=== PATIENT | female | born 1980 | race African-American/Black ===

== ENCOUNTER 2016-07-05 10:06 | Emergency (ER) | payer OTHER ==
[~2016-07-05] VITALS: Ht 160 cm; Wt 96.4 kg
[~2016-07-05 10:06] MED LIST: CHANTIX1 MG PO; COZAAR100 MG PO; DEPO-PROVER150 MG/ML IM; DILAUDID2 MG PO; ELAVIL50 MG PO; GLUCOPHAGE1000 MG PO; INDERAL20 MG PO; KLONOPIN2 MG PO; LIORESAL10 MG PO; LYRICA100 MG PO; MORPHINE SULFAT15 M1 PO; OXYCODONE HCL10 MG PO; PERCOCET 5/31 TABLET PO; PRAVACHOL80 MG PO; SEROQUEL300 MG PO; TOPAMAX100 MG PO
[2016-07-05 10:19] VITALS: BP 143/119
[2016-07-05 10:36] LABS: HEMATOCRIT 41.1 % (36.0-46.0); MCH 31.8 PG (29.0-34.0); MCHC 32.6 G/DL (30.0-36.0); MCV 97.4 FL (83-99); MEAN PLAT.VOLUME 10.7 uM^3 (9.5-12.4); PLATELET COUNT 366 K/uL (156-360); RBC DIS.WIDTH-CV 13.6 % (11.8-14.6); RBC DIS.WIDTH-SD 48.5 % (39-53); RED BLOOD COUNT 4.22 M/uL (3.80-5.20); WHITE BLOOD COUNT 24.1 K/uL (4.1-10.2)
[2016-07-05 10:49] LABS: CHLORIDE 105 mEq/L (99-109); POTASSIUM 3.4 mEq/L (3.7-5.4); SODIUM 138 mEq/L (136-147)
[2016-07-05 10:51] LABS: GLUCOSE 167 mg/dL (70-99)
[2016-07-05 10:52] LABS: ANION GAP 11 MEQ/L (2-14)
[2016-07-05 10:52] LABS: ADD MIUA? YES; BILIRUBIN NEGATIVE; BLOOD NEGATIVE; COLOR YELLOW ((YELLOW)); GLUCOSE (STRIP) NEGATIVE; KETONES NEGATIVE; LEUKOCYTES NEGATIVE; NITRITE NEGATIVE; PROTEIN (STRIP) 30; SPECIFIC GRAVITY 1.016 (1.000-1.030)
[2016-07-05 10:53] LABS: TOTAL BILIRUBIN 0.5 mg/dL (0.0-1.0)
[2016-07-05 10:54] LABS: ALKALINE PHOSPHATASE 111 IU/L (3-129)
[2016-07-05 10:55] LABS: GFR ESTIMATE (CALCULATED) > 59 mL/min/
[2016-07-05 10:56] LABS: UREA NITROGEN (BUN) 13 mg/dL (9-23)
[2016-07-05 10:57] LABS: BACTERIA RARE /HPF; EPITHELIAL CELLS 1+ /HPF; MUCUS TRACE /LPF; RED BLOOD CELLS 0-5 /HPF (0-5); UCUL ADDED? NO; WHITE BLOOD CELLS 0-5 /HPF (0-5)
[2016-07-05 11:05] LABS: QUANTITATIVE HCG < 4.0 MIU/ML
[2016-07-05] MEDS ORDERED: RENVELA800 MG PO (11:27)
[2016-07-05] MEDS ORDERED: ZOFRAN ODT8 MG PO (13:54)
[2016-07-05] MEDS ORDERED: MOTRIN600 MG PO (13:54)
== END 2016-07-05 14:15 | disposition home or self-care (01) ==
LOC: EME 10:06
DX: R10.9 Unspecified abdominal pain (principal)
CPT/HCPCS: 74176; 80053; 81003; 84702; 85027; 99281; 99284

== ENCOUNTER 2016-07-21 18:13 | Inpatient (IN) | payer OTHER ==
[~2016-07-21] VITALS: Ht 167.6 cm; Wt 99.6 kg
[~2016-07-21 18:13] MED LIST changes: +MOTRIN600 MG PO; +RENVELA800 MG PO; +ZOFRAN ODT8 MG PO
[2016-07-21 18:54] LABS: HEMATOCRIT 32.9 % (36.0-46.0); MCH 31.5 PG (29.0-34.0); MCHC 32.2 G/DL (30.0-36.0); MCV 97.9 FL (83-99); RBC DIS.WIDTH-CV 13.3 % (11.8-14.6); RBC DIS.WIDTH-SD 47.8 % (39-53); WHITE BLOOD COUNT 20.3 K/uL (4.1-10.2)
[2016-07-21 18:58] LABS: RED BLOOD COUNT 3.36 M/uL (3.80-5.20)
[2016-07-21 19:01] LABS: CHLORIDE 111 mEq/L (99-109); POTASSIUM 3.7 mEq/L (3.7-5.4); SODIUM 141 mEq/L (136-147)
[2016-07-21 19:03] LABS: GLUCOSE 149 mg/dL (70-99)
[2016-07-21 19:04] LABS: ANION GAP 11 MEQ/L (2-14)
[2016-07-21 19:05] LABS: TOTAL BILIRUBIN 0.3 mg/dL (0.0-1.0)
[2016-07-21 19:06] LABS: SERUM ETHYL ALCOHOL < 10 mg/dL
[2016-07-21 19:07] LABS: ALKALINE PHOSPHATASE 96 IU/L (3-129); GFR ESTIMATE (CALCULATED) > 59 mL/min/
[2016-07-21 19:09] LABS: BASE EXCESS -5.3 mEq/L (-3 to +3); BICARBONATE 18.6 mEq/L (22-26); CARBOXY HGB 6.2 % (0-5); METHEMOGLOBIN 1.2 % (0-1.5); PCO2 30 mm Hg (35-45); PO2 81 mm Hg (80-100)
[2016-07-21 19:09] LABS: UREA NITROGEN (BUN) 9 mg/dL (9-23)
[2016-07-21 19:10] LABS: SALICYLATE < 5.0 MG/DL (15-30)
[2016-07-21 19:10] LABS: COMMENTS - BLOOD GASES A+C+; DEVICE RA; FI02 21 %; O2 FLOW 0 L/MIN; SITE RR; TOTAL RESP RATE 22 resp/min
[2016-07-21 19:16] LABS: QUANTITATIVE HCG < 4.0 MIU/ML
[2016-07-21 19:30] LABS: ADD MIUA? YES; BILIRUBIN NEGATIVE; BLOOD SMALL; COLOR COLORLESS ((YELLOW)); GLUCOSE (STRIP) NEGATIVE; KETONES NEGATIVE; LEUKOCYTES NEGATIVE; NITRITE NEGATIVE; PROTEIN (STRIP) NEGATIVE; SPECIFIC GRAVITY 1.001 (1.000-1.030); UROBILINOGEN 0.2 MG/DL (0.2-1.0)
[2016-07-21 19:35] LABS: BACTERIA NONE SEEN /HPF; EPITHELIAL CELLS NONE SEEN /HPF; MUCUS NONE SEEN /LPF; RED BLOOD CELLS 0-5 /HPF (0-5); UCUL ADDED? NO; WHITE BLOOD CELLS 0-5 /HPF (0-5)
[2016-07-21 19:36] LABS: PLAT.SUFFICIENCY ADEQUATE; PLATELET CLUMPS PRESENT - PLATELET COUNT APPEARS ADQ.; PLATELET COUNT UNABLE TO REPORT K/uL (156-360)
[2016-07-21 19:50] LABS: ADD MEDTOX COMMENT Y; AMPHETAMINE NEGATIVE (500 ng/mL); BARBITURATES NEGATIVE (200 ng/mL); BENZODIAZEPINES NEGATIVE (150 ng/mL); COCAINE NEGATIVE (150 ng/mL); INTERNAL CONTROLS VALID? YES; METHADONE NEGATIVE (200 ng/mL); METHAMPHETAMINE NEGATIVE (500 ng/mL); OPIATES (MORPHINE) PRESUMPTIVE POSITIVE (100 ng/mL); OXYCODONE PRESUMPTIVE POSITIVE (100 ng/mL); PHENCYCLIDINE NEGATIVE (25 ng/mL); PROPOXYPHENE NEGATIVE (300 ng/mL); THC CANNABINOIDS NEGATIVE (50 ng/mL); TRICYCLIC ANTIDEPRESSANTS PRESUMPTIVE POSITIVE (300 ng/mL)
[2016-07-21 22:40] VITALS: BP 127/83
[2016-07-21 22:44] VITALS: BP 127/83
[2016-07-21 23:00] VITALS: BP 115/72
[2016-07-21 23:32] LABS: APPEARANCE CLEAR/COLORLESS; RED CELL AREA COUNTED 18; RED CELL COUNT 2 /MM^3 (0-1); RED CELL DILUTION 1; WBC AREA COUNTED 18; WBC DILUTION 1; WHITE CELL COUNT 1 /MM^3 (0-5); WHITE CELL RAW COUNT 1
[2016-07-21 23:44] LABS: BASE EXCESS -2.2 mEq/L (-3 to +3); BICARBONATE 22.4 mEq/L (22-26); CARBOXY HGB 2.7 % (0-5); COMMENTS - BLOOD GASES A+C+; DEVICE 840; FI02 100 %; MECHANICAL RATE 16 resp/min; MODE AC; PCO2 37 mm Hg (35-45); PO2 374 mm Hg (80-100); SITE RR; TIDAL VOLUME 450 ML; TOTAL RESP RATE 19 resp/min; pH 7.39 (7.35-7.45)
[2016-07-21 23:45] LABS: CSF EOSINOPHILS ND % (0-25); MONONUCLEAR WBC'S ND % (50-90); POLYNUCLEAR WBC'S ND % (0-3)
[2016-07-21 23:45] LABS: PEEP 5 CM/H20
[2016-07-21 23:54] LABS: METH RESISTANT S AUREUS PCR POSITIVE (NEGATIVE)
[2016-07-21 23:58] LABS: PROBE CHECK PASS
[2016-07-22] VITALS (12 sets, daily range): BP systolic 85–121; BP diastolic 49–80
[2016-07-22 00:23] LABS: TRIGLYCERIDES 89 MG/DL (Normal: <150)
[2016-07-22 04:40] LABS: EOSINOPHIL (%) 3.2 % (0-5); EOSINOPHIL COUNT 0.5 K/uL (0-0.3); HEMATOCRIT 31.4 % (36.0-46.0); IMMATURE GRANULOCYTE (%) 0.4 % (0.0-0.7); IMMATURE GRANULOCYTE COUNT 0.1 K/uL; INSTRUMENT ABS NEUTROPHIL CT 9.9 K/uL; LYMPHOCYTE COUNT 4.3 K/uL (1.0-2.8); MCH 31.7 PG (29.0-34.0); MCHC 32.5 G/DL (30.0-36.0); MCV 97.5 FL (83-99); MEAN PLAT.VOLUME 11.2 uM^3 (9.5-12.4); MONOCYTE (%) 4.4 % (3-12); MONOCYTE COUNT 0.7 K/uL (0-0.8); NEUTROPHIL (%) 63.7 % (45-76); NEUTROPHIL COUNT 9.9 K/uL (1.8-6.4); RBC DIS.WIDTH-CV 13.4 % (11.8-14.6); RBC DIS.WIDTH-SD 48.3 % (39-53); RED BLOOD COUNT 3.22 M/uL (3.80-5.20); WHITE BLOOD COUNT 15.5 K/uL (4.1-10.2)
[2016-07-22 04:44] LABS: CHLORIDE 114 mEq/L (99-109); POTASSIUM 3.7 mEq/L (3.7-5.4); SODIUM 145 mEq/L (136-147)
[2016-07-22 04:46] LABS: GLUCOSE 117 mg/dL (70-99)
[2016-07-22 04:48] LABS: ANION GAP 12 MEQ/L (2-14)
[2016-07-22 04:50] LABS: ALKALINE PHOSPHATASE 92 IU/L (3-129); GFR ESTIMATE (CALCULATED) > 59 mL/min/
[2016-07-22 04:51] LABS: UREA NITROGEN (BUN) 9 mg/dL (9-23)
[2016-07-22 04:56] LABS: TOTAL BILIRUBIN 0.5 mg/dL (0.0-1.0)
[2016-07-22 06:29] LABS: PLATELET COUNT 191 K/uL (156-360)
[2016-07-22] MEDS ORDERED: INDERAL40 MG PO (12:40)
[2016-07-22] MEDS ORDERED: KADIAN50 MG PO (12:41)
[2016-07-22] MEDS ORDERED: LYRICA150 MG PO (12:41)
[2016-07-22] MEDS ORDERED: OXYCONTIN40 MG PO (12:41)
[2016-07-22] MEDS ORDERED: ELAVIL25 MG PO (12:42)
[2016-07-22] MEDS ORDERED: TOPAMAX25 MG PO (12:42)
[2016-07-22] MEDS ORDERED: LIORESAL10 MG PO (12:43)
[2016-07-22] MEDS ORDERED: KLONOPIN2 MG PO (12:43)
[2016-07-22] MEDS ORDERED: SEROQUEL400 MG PO (12:43)
[2016-07-22] MEDS ORDERED: ARYMO ER15 MG PO (15:34)
[2016-07-22] MEDS ORDERED: INDERAL20 MG PO (15:34)
[2016-07-22] MEDS ORDERED: OXYCODONE HCL10 MG PO (15:35)
[2016-07-22] MEDS ORDERED: ZOFRAN ODT8 MG PO (15:37)
[2016-07-23] VITALS: BP 105/65
[2016-07-23 01:08] VITALS: BP 111/68
[2016-07-23 02:43] VITALS: BP 109/60
[2016-07-23 06:34] LABS: MCH 31.7 PG (29.0-34.0); MCHC 32.3 G/DL (30.0-36.0); MEAN PLAT.VOLUME 11.1 uM^3 (9.5-12.4); PLATELET COUNT 216 K/uL (156-360); RBC DIS.WIDTH-CV 13.6 % (11.8-14.6); RBC DIS.WIDTH-SD 49.4 % (39-53); RED BLOOD COUNT 3.06 M/uL (3.80-5.20); WHITE BLOOD COUNT 10.9 K/uL (4.1-10.2)
[2016-07-23 06:55] LABS: ANION GAP 9 MEQ/L (2-14); CHLORIDE 115 MEQ/L (99-109); GFR ESTIMATE (CALCULATED) > 59 mL/min/; GLUCOSE 120 mg/dL (70-99); POTASSIUM 3.6 MEQ/L (3.7-5.4); SAMPLE HEMOLYSIS CHECK 0; SAMPLE ICTERIC CHECK 0; SAMPLE LIPEMIA CHECK 0; SODIUM 144 MEQ/L (136-147); UREA NITROGEN (BUN) 12 mg/dL (9-23)
[2016-07-23 07:22] VITALS: BP 106/60
[2016-07-23] MEDS ORDERED: TRAZODONE HCL50 MG PO (12:37)
== END 2016-07-23 13:33 | disposition home or self-care (01) | DRG 871 ==
LOC: EME 18:13 → 5EAST 21:15 → 4WEST 21:15 → EDOF 21:15 → 4WEST 22:27 → 5EAST 07-23 00:52
PROVIDERS: Emergency Medicine; Internal Medicine Pulmonary Disease
PROC: 009U3ZX Drainage of Spinal Canal, Percutaneous Approach, Diagnostic (ICD-10-PCS; principal; 2016-07-21)
PROC: B01BZZZ Fluoroscopy of Spinal Cord (ICD-10-PCS; principal; 2016-07-21)
PROC: 5A1935Z Respiratory Ventilation, Less than 24 Consecutive Hours (ICD-10-PCS; principal; 2016-07-21)
PROC: 0BH17EZ Insertion of Endotracheal Airway into Trachea, Via Natural or Artificial Opening (ICD-10-PCS; principal; 2016-07-21)
DX: A41.9 Sepsis, unspecified organism (principal); J69.0 Pneumonitis due to inhalation of food and vomit; J96.00 Acute respiratory failure, unspecified whether with hypoxia or hypercapnia; G89.29 Other chronic pain; T40.601A Poisoning by unspecified narcotics, accidental (unintentional), initial encounter; F31.9 Bipolar disorder, unspecified; E66.01 Morbid (severe) obesity due to excess calories; Z68.35 Body mass index [BMI] 35.0-35.9, adult; M54.9 Dorsalgia, unspecified; I10 Essential (primary) hypertension; E78.5 Hyperlipidemia, unspecified; E11.65 Type 2 diabetes mellitus with hyperglycemia; F41.9 Anxiety disorder, unspecified; R65.20 Severe sepsis without septic shock
CPT/HCPCS: 31500; 36600; 62270; 70450; 71010; 77003; 80048; 80048 91; 80053; 81003; 82803; 82945; 83605; 83735; 84157; 84478; 84702; 84999; 85025; 85027; 87040; 87070; 87205; 87641; 89051; 93005; 94002; 94003; 99281; 99285; G0480; J0295; J0330; J0696; J1650; J1940; J2310; J2704; J3370; J7040; J7050; S0028

== ENCOUNTER 2016-09-16 08:45 | Emergency (ER) | payer OTHER ==
[~2016-09-16] VITALS: Ht 160 cm; Wt 96.5 kg
[~2016-09-16 08:45] MED LIST changes: +ARYMO ER15 MG PO; +ELAVIL25 MG PO; +INDERAL40 MG PO; +KADIAN50 MG PO; +LYRICA150 MG PO; +OXYCONTIN40 MG PO; +SEROQUEL400 MG PO; +TOPAMAX25 MG PO; +TRAZODONE HCL50 MG PO
[2016-09-16 09:23] LABS: BASOPHIL COUNT 0.1 K/uL (0-0.1); EOSINOPHIL (%) 3.9 % (0-5); EOSINOPHIL COUNT 0.7 K/uL (0-0.3); HEMATOCRIT 41.8 % (36.0-46.0); IMMATURE GRANULOCYTE (%) 0.4 % (0.0-0.7); IMMATURE GRANULOCYTE COUNT 0.1 K/uL; INSTRUMENT ABS NEUTROPHIL CT 13.4 K/uL; LYMPHOCYTE COUNT 3.3 K/uL (1.0-2.8); MCHC 33.5 G/DL (30.0-36.0); MCV 95.4 FL (83-99); MEAN PLAT.VOLUME 11.7 uM^3 (9.5-12.4); MONOCYTE (%) 2.9 % (3-12); MONOCYTE COUNT 0.5 K/uL (0-0.8); NEUTROPHIL (%) 74.5 % (45-76); NEUTROPHIL COUNT 13.4 K/uL (1.8-6.4); PLATELET COUNT 281 K/uL (156-360); RBC DIS.WIDTH-SD 45.9 % (39-53); RED BLOOD COUNT 4.38 M/uL (3.80-5.20)
[2016-09-16 09:32] LABS: CHLORIDE 99 mEq/L (99-109); POTASSIUM 3.5 mEq/L (3.7-5.4); SODIUM 134 mEq/L (136-147)
[2016-09-16 09:35] LABS: GLUCOSE 254 mg/dL (70-99)
[2016-09-16 09:36] LABS: ANION GAP 11 MEQ/L (2-14)
[2016-09-16 09:37] LABS: TOTAL BILIRUBIN 0.5 mg/dL (0.0-1.0)
[2016-09-16 09:38] LABS: ALKALINE PHOSPHATASE 126 IU/L (3-129); GFR ESTIMATE (CALCULATED) 55 mL/min/
[2016-09-16 09:39] LABS: UREA NITROGEN (BUN) 10 mg/dL (9-23)
[2016-09-16] MEDS ORDERED: ZOFRAN ODT4 MG PO (15:05)
[2016-09-16] MEDS ORDERED: BENTYL10 MG PO (15:05)
[2016-09-16] MEDS ORDERED: BENTYL20 MG PO (15:08)
[2016-09-16 15:25] VITALS: BP 141/93
== END 2016-09-16 18:56 | disposition home or self-care (01) ==
LOC: EME 08:45
PROVIDERS: Emergency Medicine
DX: R10.9 Unspecified abdominal pain (principal); R11.2 Nausea with vomiting, unspecified; E86.0 Dehydration; R00.0 Tachycardia, unspecified; F32.9 Major depressive disorder, single episode, unspecified; F41.9 Anxiety disorder, unspecified; K21.9 Gastro-esophageal reflux disease without esophagitis; F17.200 Nicotine dependence, unspecified, uncomplicated
CPT/HCPCS: 74177; 80053; 85025; 87493; 99281; 99285; J1885; J2405; J7030

== ENCOUNTER 2017-05-21 19:05 | Inpatient (IN) | payer OTHER ==
[~2017-05-21] VITALS: Ht 160 cm; Wt 104.2 kg
[~2017-05-21 19:05] MED LIST changes: +BENTYL10 MG PO; +BENTYL20 MG PO; +ZOFRAN ODT4 MG PO
[2017-05-21 19:57] LABS: HEMATOCRIT 44.7 % (36.0-46.0); HEMOGLOBIN 15.3 G/DL (11.9-15.5); MCH 32.6 PG (29.0-34.0); MCHC 34.2 G/DL (30.0-36.0); MCV 95.3 FL (83-99); PLATELET COUNT 211 K/uL (156-360); RBC DIS.WIDTH-CV 12.1 % (11.8-14.6); RBC DIS.WIDTH-SD 42.5 % (39-53); RED BLOOD COUNT 4.69 M/uL (3.80-5.20); WHITE BLOOD COUNT 14.4 K/uL (4.1-10.2)
[2017-05-21 20:06] LABS: CARBON DIOXIDE (BICARBONATE) 26.7 MEQ/L (20-31)
[2017-05-21 20:15] LABS: CHLORIDE 88 mEq/L (99-109); POTASSIUM 5.9 mEq/L (3.7-5.4); SODIUM 125 mEq/L (136-147)
[2017-05-21 20:21] LABS: CREATININE 1.6 mg/dL (0.6-1.3); GFR ESTIMATE (CALCULATED) 47 mL/min/
[2017-05-21 20:22] LABS: UREA NITROGEN (BUN) 13 mg/dL (9-23)
[2017-05-21 20:33] LABS: GLUCOSE 870 mg/dL (70-99)
[2017-05-21 21:16] LABS: LIPASE 58 U/L (1.0-51.0)
[2017-05-21] MEDS ORDERED: MIRENA1 EACH IY (23:13)
[2017-05-21] MEDS ORDERED: INDERAL20 MG PO (23:13)
[2017-05-21] MEDS ORDERED: TOPAMAX100 MG PO (23:13)
[2017-05-21] MEDS ORDERED: ELAVIL50 MG PO (23:14)
[2017-05-21] MEDS ORDERED: KLONOPIN1 MG PO (23:14)
[2017-05-21] MEDS ORDERED: TRAZODONE HCL50 MG PO (23:14)
[2017-05-21] MEDS ORDERED: EXCEDRIN MIGRA1 EAC3 PO (23:15)
[2017-05-22 00:29] LABS: CARBON DIOXIDE (BICARBONATE) 29.7 MEQ/L (20-31)
[2017-05-22 00:37] LABS: ALBUMIN 3.6 g/dL (3.2-4.8); CHLORIDE 93 mEq/L (99-109); SODIUM 130 mEq/L (136-147)
[2017-05-22 00:38] LABS: MAGNESIUM 1.8 mg/dL (1.3-2.7)
[2017-05-22 00:40] LABS: TOTAL PROTEIN 7.1 g/dL (6.4-8.3)
[2017-05-22 00:42] LABS: TOTAL BILIRUBIN 0.5 mg/dL (0.0-1.0)
[2017-05-22 00:43] LABS: ALKALINE PHOSPHATASE 148 IU/L (3-129)
[2017-05-22 00:44] LABS: CREATININE 1.2 mg/dL (0.6-1.3); GFR ESTIMATE (CALCULATED) > 59 mL/min/
[2017-05-22 00:45] LABS: AST (GOT) 14 IU/L (2-34); UREA NITROGEN (BUN) 11 mg/dL (9-23)
[2017-05-22 00:46] LABS: ALT (GPT) 23 IU/L (3-49)
[2017-05-22 00:55] LABS: GLUCOSE 566 mg/dL (70-99); POTASSIUM 4.3 mEq/L (3.7-5.4)
[2017-05-22 06:37] LABS: ALBUMIN 3.4 g/dL (3.2-4.8); CHLORIDE 100 mEq/L (99-109); POTASSIUM 4.3 mEq/L (3.7-5.4); SODIUM 132 mEq/L (136-147)
[2017-05-22 06:40] LABS: GLUCOSE 350 mg/dL (70-99); TOTAL PROTEIN 6.9 g/dL (6.4-8.3)
[2017-05-22 06:42] LABS: TOTAL BILIRUBIN 0.5 mg/dL (0.0-1.0)
[2017-05-22 06:43] LABS: ALKALINE PHOSPHATASE 136 IU/L (3-129); PHOSPHORUS 2.4 mg/dL (2.5-4.9)
[2017-05-22 06:44] LABS: GFR ESTIMATE (CALCULATED) > 59 mL/min/
[2017-05-22 06:45] LABS: AST (GOT) 20 IU/L (2-34); UREA NITROGEN (BUN) 8 mg/dL (9-23)
[2017-05-22 06:46] LABS: ALT (GPT) 24 IU/L (3-49)
[2017-05-22 09:29] LABS: HEMATOCRIT 38.7 % (36.0-46.0); HEMOGLOBIN 13.7 G/DL (11.9-15.5); MCH 33.2 PG (29.0-34.0); MCHC 35.4 G/DL (30.0-36.0); MCV 93.7 FL (83-99); PLATELET COUNT 185 K/uL (156-360); RBC DIS.WIDTH-CV 11.9 % (11.8-14.6); RBC DIS.WIDTH-SD 41.1 % (39-53); RED BLOOD COUNT 4.13 M/uL (3.80-5.20); WHITE BLOOD COUNT 11.3 K/uL (4.1-10.2)
[2017-05-22 09:44] LABS: ALBUMIN 3.2 g/dL (3.2-4.8); CHLORIDE 100 mEq/L (99-109); POTASSIUM 4.2 mEq/L (3.7-5.4); SODIUM 133 mEq/L (136-147)
[2017-05-22 09:46] LABS: GLUCOSE 390 mg/dL (70-99); TOTAL PROTEIN 6.7 g/dL (6.4-8.3)
[2017-05-22 09:48] LABS: TOTAL BILIRUBIN 0.5 mg/dL (0.0-1.0)
[2017-05-22 09:50] LABS: ALKALINE PHOSPHATASE 127 IU/L (3-129); GFR ESTIMATE (CALCULATED) > 59 mL/min/
[2017-05-22 09:51] LABS: UREA NITROGEN (BUN) 9 mg/dL (9-23)
[2017-05-22 09:52] LABS: AST (GOT) 31 IU/L (2-34)
[2017-05-22 09:53] LABS: ALT (GPT) 26 IU/L (3-49)
[2017-05-22 13:14] LABS: HEMOGLOBIN A1c (GLYCOHEMOGLOB) 13.9 % (Below 5.7)
[2017-05-22 15:30] VITALS: BP 119/78
[2017-05-22 19:03] VITALS: BP 122/69
[2017-05-22 23:48] VITALS: BP 149/84
[2017-05-23 03:54] VITALS: BP 128/80
[2017-05-23 08:18] VITALS: BP 134/77
[2017-05-23 11:48] LABS: GLUCOSE 434 mg/dL (70-99)
[2017-05-23 11:50] VITALS: BP 110/74
[2017-05-23 15:35] VITALS: BP 136/95
[2017-05-23 20:24] VITALS: BP 159/81
[2017-05-24 00:14] VITALS: BP 102/55
[2017-05-24 04:17] VITALS: BP 122/66
[2017-05-24 06:02] LABS: BASOPHIL (%) 0.5 % (0-1); BASOPHIL COUNT 0.1 K/uL (0-0.1); EOSINOPHIL (%) 3.9 % (0-5); EOSINOPHIL COUNT 0.4 K/uL (0-0.3); HEMATOCRIT 38.6 % (36.0-46.0); HEMOGLOBIN 12.9 G/DL (11.9-15.5); IMMATURE GRANULOCYTE (%) 0.4 % (0.0-0.7); LYMPHOCYTE COUNT 4.5 K/uL (1.0-2.8); MCH 32.3 PG (29.0-34.0); MCHC 33.4 G/DL (30.0-36.0); MCV 96.7 FL (83-99); MONOCYTE (%) 5.8 % (3-12); MONOCYTE COUNT 0.6 K/uL (0-0.8); NEUTROPHIL (%) 48.4 % (45-76); NEUTROPHIL COUNT 5.3 K/uL (1.8-6.4); PLATELET COUNT 161 K/uL (156-360); RBC DIS.WIDTH-CV 12.2 % (11.8-14.6); RED BLOOD COUNT 3.99 M/uL (3.80-5.20)
[2017-05-24 06:31] LABS: CHLORIDE 104 MEQ/L (99-109); CREATININE 0.9 MG/DL (0.6-1.3); GFR ESTIMATE (CALCULATED) > 59 mL/min/; GLUCOSE 242 mg/dL (70-99); POTASSIUM 4.1 MEQ/L (3.7-5.4); SODIUM 136 MEQ/L (136-147); UREA NITROGEN (BUN) 10 mg/dL (9-23)
[2017-05-24 07:50] VITALS: BP 112/60
[2017-05-24 12:31] VITALS: BP 131/75
[2017-05-24] MEDS ORDERED: NOVOLOG 10100 UNITS/ SC (13:46)
[2017-05-24] MEDS ORDERED: AMOX TR-K CLV1 EAC4 PO (13:46)
[2017-05-24] MEDS ORDERED: TRAZODONE HCL50 MG PO (13:46)
[2017-05-24] MEDS ORDERED: ELAVIL50 MG PO (13:46)
[2017-05-24] MEDS ORDERED: LEVEMIR100 UNIT/2 SC (13:46)
[2017-05-24] MEDS ORDERED: KLONOPIN1 MG PO (13:46)
[2017-05-24] MEDS ORDERED: TOPAMAX100 MG PO (13:46)
[2017-05-24] MEDS ORDERED: METFORMIN HCL500 MG PO (13:46)
[2017-05-24] MEDS ORDERED: INDERAL20 MG PO (13:46)
[2017-05-24] MEDS ORDERED: LIORESAL10 MG PO (13:46)
[2017-05-24] MEDS ORDERED: LYRICA150 MG PO (13:46)
[2017-05-24] MEDS ORDERED: EXCEDRIN MIGRA1 EAC3 PO (13:46)
[2017-05-24] MEDS ORDERED: SEROQUEL400 MG PO (13:46)
== END 2017-05-24 19:53 | disposition home or self-care (01) | DRG 392 ==
LOC: EME 19:05 → EDOF 23:28 → ENRESERV 23:33 → EDOF 05-22 14:42 → 2EASTP 05-22 15:17
PROVIDERS: Emergency Medicine; Hospitalist; Internal Medicine; Physician Assistant Medical
DX: A08.4 Viral intestinal infection, unspecified (principal); E11.65 Type 2 diabetes mellitus with hyperglycemia; N17.9 Acute kidney failure, unspecified; E87.2 Acidosis; E86.0 Dehydration; K04.7 Periapical abscess without sinus; I10 Essential (primary) hypertension; F31.9 Bipolar disorder, unspecified; F41.9 Anxiety disorder, unspecified; G43.909 Migraine, unspecified, not intractable, without status migrainosus; G89.29 Other chronic pain; F17.200 Nicotine dependence, unspecified, uncomplicated; E66.01 Morbid (severe) obesity due to excess calories; Z68.41 Body mass index [BMI] 40.0-44.9, adult; Z91.14 Patient's other noncompliance with medication regimen
CPT/HCPCS: 70486; 74176; 80047; 80048; 80048 91; 80053; 80306 90; 81003; 82010; 82803; 82948; 83036; 83605; 83690; 83735; 84100; 84999; 85025; 85027; 87040; 87493; 93005; 99281; 99285; J0295; J1650; J1815; J2543; J3370; J3480; J7030; J7050; J7120

== ENCOUNTER 2017-09-10 12:58 | Emergency (ER) | payer OTHER ==
[~2017-09-10] VITALS: Ht 160 cm; Wt 103.5 kg
[~2017-09-10 12:58] MED LIST changes: +AMOX TR-K CLV1 EAC4 PO; +EXCEDRIN MIGRA1 EAC3 PO; +KLONOPIN1 MG PO; +LEVEMIR100 UNIT/2 SC; +METFORMIN HCL500 MG PO; +MIRENA1 EACH IY; +NOVOLOG 10100 UNITS/ SC
[2017-09-10 13:33] LABS: HEMATOCRIT 41.5 % (36.0-46.0); MCH 33.2 PG (29.0-34.0); MCHC 33.7 G/DL (30.0-36.0); MCV 98.3 FL (83-99); PLATELET COUNT 293 K/uL (156-360); RBC DIS.WIDTH-CV 14.5 % (11.8-14.6); RBC DIS.WIDTH-SD 52.2 % (39-53); RED BLOOD COUNT 4.22 M/uL (3.80-5.20); WHITE BLOOD COUNT 15.5 K/uL (4.1-10.2)
[2017-09-10 13:39] LABS: APPEARANCE SL.HAZY ((CLEAR)); BILIRUBIN NEGATIVE; BLOOD NEGATIVE; COLOR YELLOW ((YELLOW)); GLUCOSE (STRIP) NEGATIVE; KETONES NEGATIVE; LEUKOCYTES NEGATIVE; NITRITE NEGATIVE; PROTEIN (STRIP) 30; SPECIFIC GRAVITY 1.013 (1.000-1.030); UROBILINOGEN 0.2 MG/DL (0.2-1.0)
[2017-09-10 13:41] LABS: ALBUMIN 3.6 g/dL (3.2-4.8); CHLORIDE 104 mEq/L (99-109); POTASSIUM 4.8 mEq/L (3.7-5.4); SODIUM 134 mEq/L (136-147)
[2017-09-10 13:41] LABS: BACTERIA RARE /HPF; EPITHELIAL CELLS 1+ /HPF; MUCUS TRACE /LPF; RED BLOOD CELLS 0-5 /HPF (0-5); UCUL ADDED? NO; WHITE BLOOD CELLS 0-5 /HPF (0-5)
[2017-09-10 13:44] LABS: GLUCOSE 213 mg/dL (70-99); TOTAL PROTEIN 7.3 g/dL (6.4-8.3)
[2017-09-10 13:46] LABS: TOTAL BILIRUBIN 0.2 mg/dL (0.0-1.0)
[2017-09-10 13:47] LABS: ALKALINE PHOSPHATASE 118 IU/L (3-129); CREATININE 0.9 mg/dL (0.6-1.3); GFR ESTIMATE (CALCULATED) > 59 mL/min/
[2017-09-10 13:48] LABS: UREA NITROGEN (BUN) 11 mg/dL (9-23)
[2017-09-10 13:49] LABS: AST (GOT) 12 IU/L (2-34)
[2017-09-10 13:50] LABS: ALT (GPT) 16 IU/L (3-49)
[2017-09-10 13:57] LABS: QUANTITATIVE HCG < 4.0 MIU/ML
[2017-09-10] MEDS ORDERED: MOTRIN600 MG PO (16:03)
[2017-09-10] MEDS ORDERED: FLAGYL500 MG PO (16:03)
[2017-09-10] MEDS ORDERED: DOXYCYCLINE HY100 MG PO (16:06)
[2017-09-10 16:19] LABS: SOURCE SWAB
[2017-09-10 16:52] VITALS: BP 128/80
== END 2017-09-10 17:00 | disposition home or self-care (01) ==
LOC: EME 12:58
PROVIDERS: Physician Assistant
DX: N73.9 Female pelvic inflammatory disease, unspecified (principal); M87.852 Other osteonecrosis, left femur; M87.851 Other osteonecrosis, right femur; K21.9 Gastro-esophageal reflux disease without esophagitis; F32.9 Major depressive disorder, single episode, unspecified; F17.200 Nicotine dependence, unspecified, uncomplicated; Z97.5 Presence of (intrauterine) contraceptive device; Z87.19 Personal history of other diseases of the digestive system; Z98.890 Other specified postprocedural states; Z90.49 Acquired absence of other specified parts of digestive tract
CPT/HCPCS: 74177; 80053; 81003; 84702; 85027; 87210; 87491; 87591; 99281; 99285; J0696; J1885; J2405; J3010; J7030

== ENCOUNTER 2017-09-11 19:59 | Emergency (ER) | payer OTHER ==
[~2017-09-11] VITALS: Ht 160 cm; Wt 102.1 kg
[~2017-09-11 19:59] MED LIST changes: +DOXYCYCLINE HY100 MG PO; +FLAGYL500 MG PO
[2017-09-11 22:09] LABS: HEMATOCRIT 40.7 % (36.0-46.0); MCH 33.4 PG (29.0-34.0); MCHC 34.4 G/DL (30.0-36.0); MCV 97.1 FL (83-99); PLATELET COUNT 309 K/uL (156-360); RBC DIS.WIDTH-CV 14.6 % (11.8-14.6); RBC DIS.WIDTH-SD 51.6 % (39-53); RED BLOOD COUNT 4.19 M/uL (3.80-5.20)
[2017-09-11 22:40] LABS: CHLORIDE 103 MEQ/L (99-109); SODIUM 135 MEQ/L (136-147)
[2017-09-11 22:41] LABS: POTASSIUM 3.8 MEQ/L (3.7-5.4)
[2017-09-11 22:45] LABS: CREATININE 0.7 MG/DL (0.6-1.3); GFR ESTIMATE (CALCULATED) > 59 mL/min/; GLUCOSE 139 mg/dL (70-99); UREA NITROGEN (BUN) 11 mg/dL (9-23)
[2017-09-12 00:32] VITALS: BP 142/92
== END 2017-09-12 00:33 | disposition home or self-care (01) ==
LOC: EME 19:59
PROVIDERS: Nurse Practitioner Family
DX: R10.31 Right lower quadrant pain (principal); R10.2 Pelvic and perineal pain; R11.2 Nausea with vomiting, unspecified; D72.829 Elevated white blood cell count, unspecified; R35.0 Frequency of micturition; R68.83 Chills (without fever); R00.0 Tachycardia, unspecified; Z97.5 Presence of (intrauterine) contraceptive device; Z90.49 Acquired absence of other specified parts of digestive tract; E11.9 Type 2 diabetes mellitus without complications; Z79.4 Long term (current) use of insulin; F17.200 Nicotine dependence, unspecified, uncomplicated
CPT/HCPCS: 76856; 80048; 83605; 85027; 87040; 99281; 99285; J1885; J2405; J7120